=== PATIENT | male | born 1955 | race Two or more races ===

== ENCOUNTER 2020-07-31 22:31 | Inpatient (IN) | payer MEDICARE ==
[~2020-07-31] VITALS: Ht 170.2 cm; Wt 117.9 kg
--- NOTE | 2020-07-31 22:31 | NUR ---
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 PT PLACED IN BED 1 ON AQUATICS SPECIALIST AND PULSE OX. SR ON MONITOR W PVCS. IV RH 20G PLACED, BLOOD DRAWN, SENT TO LAB. AWAITING OTHER ORDERS.
[2020-07-31 22:53] LABS: BASOPHILS # (AUTO) 0.1 /CMM (0.0-0.2); BASOPHILS % (AUTO) 0.7 % (0.0-2.0); EOSINOPHILS % (AUTO) 5.8 % (0.0-6.0); HEMATOCRIT 47 % (39-51); HEMOGLOBIN 15.6 g/dL (13.5-17.5); LYMPHOCYTES # (AUTO) 2.4 /CMM (0.8-4.8); LYMPHOCYTES % (AUTO) 29.5 % (20.0-44.0); MEAN CORPUSCULAR HGB CONC 34 g/dl (31.0-36.0); MEAN CORPUSCULAR VOLUME 98 fL (80-96); MONOCYTES # (AUTO) 0.8 /CMM (0.1-1.30); MONOCYTES % (AUTO) 9.4 % (2.0-12.0); NEUTROPHILS # (AUTO) 4.5 /CMM (1.8-8.9); NEUTROPHILS % (AUTO) 54.6 % (43.0-81.0); PLATELET COUNT (AUTO) 236 /CMM (150-450); RED BLOOD CELL COUNT(AUTO) 4.76 MIL/uL (4.5-6.0); WHITE BLOOD COUNT (AUTO) 8.2 K/uL (4.3-11.0)
[2020-07-31 23:02] LABS: CALCIUM, SERUM 8.4 mg/dL (8.5-10.1); CARBON DIOXIDE 24 mmol/L (21-32); CHLORIDE 108 mmol/L (98-107); GLUCOSE 127 mg/dL (74-106); POTASSIUM 3.8 mmol/L (3.5-5.1); SODIUM SERUM 142 mmol/L (136-145); UREA NITROGEN, BLOOD 14 mg/dL (7-18)
[2020-07-31 23:18] LABS: ALANINE AMINOTRANSFERASE 25 U/L (12-78); ALBUMIN 3.2 g/dL (3.4-5.0); ALKALINE PHOSPHATASE 65 U/L (46-116); ASPARTATE AMINOTRANSFERASE 10 U/L (15-37); B-TYPE NATRIURETIC PEPTIDE 366 PG/ML (0-125); BILIRUBIN,DIRECT 0.1 mg/dL (0.0-0.2); BILIRUBIN,TOTAL 0.5 mg/dL (0.2-1.0); TOTAL PROTEIN, SERUM 6.9 g/dL (6.4-8.2)
[2020-08-01] VITALS (7 sets, daily range): BP systolic 123–160; BP diastolic 72–119
--- NOTE | 2020-08-01 00:19 | NUR ---
REMAINS IN BED, ON MONITOR, AND PULSE OX. VSS. DENIES CP. AWARE OF ADMISSION.
[2020-08-01] MEDS ORDERED: AZITHROMYCIN 500 MG VIAL ONE (00:29)
[2020-08-01] MEDS ORDERED: ACETAMINOPHEN 325 MG TABLET PO PRN (00:30)
[2020-08-01] MEDS ORDERED: AZITHROMYCIN 500 MG in IV D5W 250 ML IV ONE (00:30)
[2020-08-01] MEDS ORDERED: Z GUARD REMEDY 2 OZ OINT TP PRN (00:30)
[2020-08-01] MEDS ORDERED: MAG HYDROX/AL HYDROX/SIMETH 30 ML UDC PO PRN (00:30)
[2020-08-01] MEDS ORDERED: AZITHROMYCIN 500 MG in IV D5W 250 ML IV SCH ×2 (00:30→07:30)
[2020-08-01] MEDS ORDERED: MAGNESIUM HYDROXIDE 30 ML UDC PO PRN (00:30)
[2020-08-01] MEDS ORDERED: CEFTRIAXONE 1GM BAG (ER ONLY) 50 ML IV ONE (00:30)
[2020-08-01] MEDS ORDERED: ONDANSETRON HCL/PF 4 MG/2 ML VIAL IVP PRN (00:30)
--- NOTE | 2020-08-01 00:41 | NUR ---
BED ASSIGNMENT 313-2
--- NOTE | 2020-08-01 00:53 | NUR ---
REPORT GIVEN TO Gisella MOORE FOR FRANCHESKA
--- NOTE | 2020-08-01 01:10 | NUR ---
PT TRANSFERED PER ACLS PROTOCOL
--- NOTE | 2020-08-01 02:30 | NUR ---
PT RECEIVED FROM ER VIA STRETCHER. AOX4, CASANOVA, AMBULATES TO THE BATHROOM WITH A STEADY GAIT. DENIES SOB, DYSPNEA OR PAIN. SKIN INTACT. ORIENTATED TO ROOM AND EQUIPMENT. ENCOURAGED TO CALL FOR ASSIST.
--- NOTE | 2020-08-01 07:25 | NUR ---
MANAGER GROUP NOTES PATIENT IN BED ALERT ORIENTED X 4. NO ACUTE DISTRESS NOTED. BREATHING UNLABORED. DENIED CHEST PAIN. IV ACCESS PATENT AND INTACT, NO REDNESS, NO SWELLING NOTED. SAFETY MEASURES IN PLACE. CALL LIGHT WITHIN REACH. WILL CONTINUE TO MONITOR ACCORDINGLY.
[2020-08-01] MEDS ORDERED: ATOR10TA PO (08:34)
[2020-08-01] MEDS ORDERED: TICA90TA PO (08:34)
[2020-08-01] MEDS ORDERED: ASPI-1169 PO (08:34)
[2020-08-01] MEDS ORDERED: [UNRECOGNIZED DRUG - REMARK] PO (08:34)
[2020-08-01] MEDS ORDERED: IV NS 0.9% 500 ML IV PRN (09:00)
[2020-08-01] MEDS ORDERED: ENOXAPARIN SODIUM 40 MG/0.4 ML DISP.SYRIN SQ SCH (09:00)
[2020-08-01] MEDS ORDERED: NITROGLYCERIN 4.9 GM SPRAY SL PRN (09:00)
--- NOTE | 2020-08-01 09:20 | NUR ---
TAX CONSULTANT NOTES BERTRAND NOT AVAILABLE ON THE FLOOR AT THIS TIME, CALLED PHARMACY SAID THEY WILL BRING MEDICATION.
[2020-08-01] MEDS: ASPIRIN 81 MG TAB.CHEW PO SCH (09:23)
[2020-08-01] MEDS: ATORVASTATIN 10 MG TABLET PO SCH (09:24)
--- NOTE | 2020-08-01 09:27 | NUR ---
THRESHER BROOMCORN NOTES PATIENT TRANSPORTED FOR CTA IN STABLE CONDITION. ALERT ORIENTED X 4
[2020-08-01] MEDS ORDERED: NITROGLYCERIN 0.4 MG/TAB BOTTLE SL ONE (09:30)
[2020-08-01] MEDS ORDERED: IOHEXOL-350 100 ML VIAL IV ONE (09:35)
[2020-08-01] MEDS ORDERED: IV NS 0.9% 250 ML IV ONE (09:36)
[2020-08-01] MEDS ORDERED: METOPROLOL TARTRATE INJ 5 MG/5 ML AMPUL ONE (09:36)
[2020-08-01] MEDS ORDERED: CT SWABBABLE VALVE TRANS SET 1 EA INFUS.SET MC ONE (09:36)
[2020-08-01] MEDS ORDERED: NITROGLYCERIN 0.4 MG/TAB BOTTLE ONE (09:36)
[2020-08-01 09:40] LABS: BASOPHILS % (AUTO) 0.4 % (0.0-2.0); EOSINOPHILS % (AUTO) 4.4 % (0.0-6.0); HEMATOCRIT 46 % (39-51); HEMOGLOBIN 15.1 g/dL (13.5-17.5); LYMPHOCYTES # (AUTO) 1.7 /CMM (0.8-4.8); MEAN CORPUSCULAR HGB CONC 33 g/dl (31.0-36.0); MEAN CORPUSCULAR VOLUME 99 fL (80-96); MONOCYTES # (AUTO) 0.6 /CMM (0.1-1.30); MONOCYTES % (AUTO) 8.6 % (2.0-12.0); NEUTROPHILS # (AUTO) 4.5 /CMM (1.8-8.9); NEUTROPHILS % (AUTO) 62.6 % (43.0-81.0); PLATELET COUNT (AUTO) 221 /CMM (150-450); RED BLOOD CELL COUNT(AUTO) 4.59 MIL/uL (4.5-6.0); WHITE BLOOD COUNT (AUTO) 7.2 K/uL (4.3-11.0)
[2020-08-01] MEDS: METOPROLOL TARTRATE INJ 5 MG/5 ML AMPUL IVP PRN ×3 (09:46→09:56)
[2020-08-01 10:00] LABS: ALBUMIN 3.1 g/dL (3.4-5.0); BILIRUBIN,TOTAL 0.6 mg/dL (0.2-1.0); CALCIUM, SERUM 8.6 mg/dL (8.5-10.1); MAGNESIUM 2.1 mg/dL (1.8-2.4); PHOSPHORUS 2.6 mg/dL (2.5-4.9); POTASSIUM 3.8 mmol/L (3.5-5.1); TOTAL PROTEIN, SERUM 6.8 g/dL (6.4-8.2)
--- NOTE | 2020-08-01 10:18 | NUR ---
for CTA heart, AAOx4 denies CP or SOB, VSS; given SR with PVCs on monitor,Metoprolol 5 mg IVP,x3 total doses given NTG0.4 Mg SL given; pt tolerated procedure; off to the floor via wheelchair, report given to Janey MOORE
--- NOTE | 2020-08-01 10:25 | NUR ---
ENTRY LEVEL FINANCIAL ANALYST NOTES PATIENT CAME BACK FROM CTA IN STABLE CONDITION, REPORT GIVEN BY JUANCARLOS MOORE.
[2020-08-01] MEDS: TICAGRELOR 90 MG TABLET PO SCH ×2 (10:38→17:41)
--- NOTE | 2020-08-01 11:25 | NUR ---
EMAIL MARKETING MANAGER NOTES PATIENT REMAIN STABLE , VITAL SIGNS WNL. WILL CONTINUE TP MONITOR
[2020-08-01] MEDS: METOPROLOL TARTRATE 50 MG TABLET PO SCH ×2 (12:52→18:28)
--- NOTE | 2020-08-01 14:25 | NUR ---
STATE FIRE MARSHAL NOTES PATIENT SEEN BY DR ADAMSON EXPLAINED CTA RESULTS
--- NOTE | 2020-08-01 19:00 | NUR ---
SAP BPC DEVELOPER NOTES PATIENT IN BED ALERT ORIENTED X 4. NO ACUTE DISTRESS NOTED. BREATHING UNLABORED. DENIED CHEST PAIN. IV ACCESS PATENT AND INTACT, NO REDNESS, NO SWELLING NOTED. NEEDS ATTENDED AND ANTICIPATED. SAFETY MEASURES IN PLACE. CALL LIGHT WITHIN REACH. WILL ENDORSE TO NIGHT NURSE FOR CONTINUITY OF CARE.
--- NOTE | 2020-08-01 19:31 | NUR ---
RN PAIN MANAGEMENT OPENING NOTES PATIENT A/OX4; ABLE TO MAKE NEEDS KNOWN. TOLERATING ROOM AIR WELL. ON EXTERNAL CARDIAC MONITORING; READS SR WITH PVC. DENIES PAIN OR C/O DISTRESS. IV #18G TO RAC; PATENT AND INTACT. IV #20G TO RIGHT HAND S/L; PATENT AND INTACT. SAFETY MEASURES IN PLACE; BED IN LOWEST LOCKED POSITION, SIDE RAILS UPX2, CALL LIGHT WITHIN EASY REACH. WILL CONTINUE PLAN OF CARE.
[2020-08-01] MEDS: CEFTRIAXONE 1 G in IV D5W 50 ML IV SCH (20:22)
[2020-08-01] MEDS: diphenhydrAMINE HCL 25 MG CAPSULE PO PRN (22:07)
[2020-08-01] MEDS: ZITHROMAX 500 MG/250 ML D5W IV SCH ×2 (22:07)
--- NOTE | 2020-08-01 22:07 | NUR ---
DIRECTOR TRANSLATION NOTES - SLEEP PATIENT C/O NOT SLEEPING IN 2 DAYS, AND REQUESTING FOR MEDICATION TO HELP GO TO SLEEP. AGATHA HALEY NP ORDERED BENADRYL 25MG PO HS PRN DX: INSOMNIA. ORDERED AND ADMINISTERED. WILL CONTINUE TO MONITOR SLEEP.
--- NOTE | 2020-08-01 22:10 | NUR ---
GARBAGE TRUCK DRIVER NOTES - CONSENT FOR LEFT CARDIAC CATHETERIZATION DR. VERDUZCO CALLED AND NOTIFIED RN THAT PATIENT IS HAVING LEFT CARDIAC CATHETERIZATION ON 08/02/2020 AT 0700. RN INFORMED PATIENT AND PATIENT SIGNED CONSENT FORM. RING REMOVED AND IS AT BEDSIDE. CHARGE NURSE AWARE AND AWAITING FOR ANESTHESIA DOCUMENTS FROM THE CHARGE NURSE.
[2020-08-02] VITALS (30 sets, daily range): BP systolic 103–158; BP diastolic 20–96
[2020-08-02] MEDS ORDERED: IV NS 0.9% 1,000 ML ONE (05:56)
[2020-08-02] MEDS ORDERED: IV SET PRIMARY PUMP SET 1 EA INFUS.SET MC ONE ×2 (05:56→07:54)
[2020-08-02] MEDS ORDERED: LIDOCAINE HCL/MPF 1% 30 ML VIAL IJ ONE (05:57)
[2020-08-02] MEDS ORDERED: IODIXANOL 150 ML IV ONE ×3 (05:57→07:48)
[2020-08-02] MEDS: METOPROLOL TARTRATE 50 MG TABLET PO SCH ×5 (06:00→23:01)
--- NOTE | 2020-08-02 06:10 | NUR ---
OUTPATIENT SCHEDULER CLOSING NOTES PATIENT A/OX4; ABLE TO MAKE NEEDS KNOWN. TOLERATING ROOM AIR WELL. ON EXTERNAL CARDIAC MONITORING; READS SR WITH PVC. DENIES PAIN OR C/O DISTRESS. IV #18G TO RAC; PATENT AND INTACT. IV #20G TO RIGHT HAND S/L; PATENT AND INTACT. IV #18G TO L HAND; PATENT AND INTACT. PATIENT TRANSPORTED TO FRAUD MANAGER FOR LEFT CARDIAC CATHETERIZATION. ENDORSE PLAN OF CARE TO ONCOMING NURSE.
[2020-08-02] MEDS ORDERED: NITROGLYCERIN ICAR 1,000 MCG/10 ML VIAL ICAR ONE (06:44)
[2020-08-02] MEDS ORDERED: FENTANYL PF 100MCG/2ML AMPUL ONE ×2 (07:10→08:34)
[2020-08-02] MEDS ORDERED: MIDAZOLAM HCL 2 MG/2ML VIAL ONE (07:10)
[2020-08-02] MEDS ORDERED: IODIXANOL 320MG/ML 50 ML IV ONE (07:24)
[2020-08-02] MEDS ORDERED: HEPARIN SODIUM, PORCINE 1,000 UNIT/ML VIAL ONE ×2 (07:24→07:49)
[2020-08-02] MEDS ORDERED: HEPARIN SODIUM, PORCINE 5000 UNITS/1 ML VIAL ONE (07:30)
--- NOTE | 2020-08-02 07:35 | NUR ---
MS/RN OPENING NOTE RECEIVED PATIENT FROM DREDGE MECHANIC NURSE PATIENT IN BED ASLEEP, EASILY WOKEN UP. A/O X4. NO ACUTE DISTRESS NOTED AT THIS TIME. PATIENT ON ROOM AIR, TOLERATING WELL. NO SOB NOTED, BREATHING EVEN, NON LABORED. SAFETY MEASURE IN PLACE, BED LOCKED AND IN LOWEST POSITION, CALL LIGHT WITHIN REACH. WILL CONTINUE TO MONITOR AND ENSURE SAFETY.
--- NOTE | 2020-08-02 07:38 | NUR ---
MS/RN NOTE PATIENT IS CURRENTLY IN ASSISTANT COUNSEL.
[2020-08-02] MEDS ORDERED: EPINEPHRINE (1:10,000) SYRINGE 1 MG/10 ML DISP.SYRIN ONE (07:43)
[2020-08-02] MEDS ORDERED: DOPamine 400MG/D5W 250ML RTU 250 ML ONE (07:43)
[2020-08-02] MEDS ORDERED: ONDANSETRON HCL/PF 4 MG/2 ML VIAL ONE (07:47)
[2020-08-02] MEDS ORDERED: NOREPINEPHRINE 4 MG/4 ML AMPUL IV ONE (07:53)
[2020-08-02] MEDS ORDERED: IV NS 0.9% 250 ML IV ONE (07:53)
[2020-08-02] MEDS ORDERED: IV NS 0.9% 500 ML IV ONE ×2 (08:02)
[2020-08-02] MEDS ORDERED: TICAGRELOR 90 MG TABLET PO ONE (08:44)
[2020-08-02] MEDS ORDERED: ASPIRIN 325 MG TABLET ONE (08:44)
[2020-08-02] MEDS: ASPIRIN 81 MG TAB.CHEW PO SCH (09:00)
[2020-08-02] MEDS: TICAGRELOR 90 MG TABLET PO SCH ×2 (09:00→20:00)
--- NOTE | 2020-08-02 09:10 | NUR ---
POST LEFT HEART CATH DONE PT IS AAOX4, NOT IN RESPIRATORY DISTRESS, V/S STABLE, KEPT RESTED AND COMFORTABLE. LEVOPHED DRIP STARTED TITRATE TO EFFECT. REPORT GIVEN TO TERESA GONZALEZ OF ICU FOR FRANCHESKA.
[2020-08-02] MEDS: ATORVASTATIN 10 MG TABLET PO SCH (10:23)
[2020-08-02] MEDS: HYDROCODONE/APAP 5/325MG TABLET PO PRN ×2 (10:24→18:03)
--- NOTE | 2020-08-02 10:41 | NUR ---
MS/RN NOTE CHARGE NURSE WAS TRANSFERRED TO ICU AFTER BEING TAKEN TO AIR POLLUTION ENGINEER. TRANSFER REPORT GIVEN TO ICU NURSE. BELONGINGS TRANSFERED TO ICU, DUCK BILL OPERATOR TOOK BELONGINGS TO PATIENT.
--- NOTE | 2020-08-02 11:00 | NUR ---
Received pt from lab assistant with RN and monitor in stable condition. Denies CP and SOB. Received pt with right femoral A line sheath, Left femoral A line sheath with pressure bag, Left fem venous sheath, and Right radial TR band inflated. Right radial site with ecchymosis. No hematoma noted. Small amount of dry blood noted to right radial site. Left and right femoral sheath sites intact w/ no bleeding or hematoma noted. Left radial sheath transduced to monitor. Right radial sheath left in place without transducer (per editor magazine). Will monitor frequently for bleeding and hematoma formation.
[2020-08-02] MEDS ORDERED: IV NS 0.9% 1,000 ML IV ONE (12:00)
[2020-08-02] MEDS ORDERED: NOREPINEPHRINE 8 MG in IV NS 0.9% 242 ML IV PRN (12:00)
--- NOTE | 2020-08-02 12:30 | NUR ---
TR band deflated to right radial cath site per order. Small dry amount of blood noted. Ecchymosis remains. No hematoma noted. Pt educated on the importance of bedrest without bending BLE. Pt verbalized understanding.
[2020-08-02 12:54] LABS: BASOPHILS % (AUTO) 0.2 % (0.0-2.0); EOSINOPHILS % (AUTO) 0.4 % (0.0-6.0); HEMATOCRIT 45 % (39-51); LYMPHOCYTES # (AUTO) 1.4 /CMM (0.8-4.8); LYMPHOCYTES % (AUTO) 13.7 % (20.0-44.0); MEAN CORPUSCULAR HGB CONC 34 g/dl (31.0-36.0); MEAN CORPUSCULAR VOLUME 97 fL (80-96); MONOCYTES # (AUTO) 0.7 /CMM (0.1-1.30); MONOCYTES % (AUTO) 7.4 % (2.0-12.0); NEUTROPHILS # (AUTO) 7.8 /CMM (1.8-8.9); NEUTROPHILS % (AUTO) 78.3 % (43.0-81.0); PLATELET COUNT (AUTO) 222 /CMM (150-450); RED BLOOD CELL COUNT(AUTO) 4.58 MIL/uL (4.5-6.0)
[2020-08-02 13:33] LABS: BILIRUBIN,TOTAL 0.8 mg/dL (0.2-1.0); CALCIUM, SERUM 8.5 mg/dL (8.5-10.1); MAGNESIUM 2.1 mg/dL (1.8-2.4); PHOSPHORUS 2.9 mg/dL (2.5-4.9); POTASSIUM 3.8 mmol/L (3.5-5.1); TOTAL PROTEIN, SERUM 6.5 g/dL (6.4-8.2)
[2020-08-02] MEDS: HEPARIN INFUSION/D5W 500 ML IV PRN (13:46)
--- NOTE | 2020-08-02 18:10 | NUR ---
Call placed to Dr. Patricia (cardiology) to clarify order for Brilinta. Pt on Heparin drip as per order. Need clarification whether or not to continue Brilinta in addition to Heparin gtt. Left message on voicemail. Awaiting call back for orders.
--- NOTE | 2020-08-02 19:00 | NUR ---
RECEIVED PATIENT AWAKE,ALERT,CONVERSES, COHERENT AND APPROPRIATE,NOT IN ANY DISTRESS,DENIES ANY CHEST PAIN/DISCOMFORT. ON HEPARIN DRIP @ 1000 UNITS /HR.(BY ACS PROTOCOL). NO S/S OF ANY BLEEDING .WILL CLOSELY MONITOR FOR BLEEDING. ARTERIAL SHEATH VIA LEFT FEMORAL AREA(CONNECTED AN ARTERIAL LINE ) ,GOOD WAVEFORM,GOOD BLOOD RETURN. RIGHT FEMORAL WITH CATHETER,INTACT,NO S/S OF BLEEDING, DFRESSING DRY AND INTACT. PATIENT NPO POST MIDNIGHT ,GOING BACK TO CATH.LAB IN AM.
--- NOTE | 2020-08-02 19:00 | NUR ---
Mary RIBEIRO HEOLD BY LUI MOORE, PATIENT STARTED ON HEPARIN DRIP
--- NOTE | 2020-08-02 19:20 | NUR ---
Report given to oncoming RN. Pt in stable condition without bleeding or hematoma noted to right radial, right femoral and left femoral sheath sites.
--- NOTE | 2020-08-02 20:30 | NUR ---
PTT=29.8. as per ACS Protocol will give 6000 units Heparin IV bolus then increase drip by 300 units (1300 units/hr).
[2020-08-02] MEDS ORDERED: HEPARIN SODIUM, PORCINE 5000 UNITS/1 ML VIAL IV ONE (22:00)
--- NOTE | 2020-08-02 22:00 | NUR ---
REMAINS STABLE ,NO CHEST PAIN,NO S/S OF ANY BLEEDING.
[2020-08-02] MEDS: CEFTRIAXONE 1 G in IV D5W 50 ML IV SCH (22:20)
[2020-08-02] MEDS: diphenhydrAMINE HCL 25 MG CAPSULE PO PRN (23:00)
[2020-08-02] MEDS: ZITHROMAX 500 MG/250 ML D5W IV SCH ×2 (23:01)
[2020-08-03] VITALS (48 sets, daily range): BP systolic 93–176; BP diastolic 53–134
--- NOTE | 2020-08-03 | NUR ---
INSTRUCTED PATIENT TO BE NPO STARTING NOW.FOR CARDIAC CATH IN AM.PATIENT IS AWARE THAT HE'S GOING BACK TO THE CATH. LAB IN AM
--- NOTE | 2020-08-03 02:00 | NUR ---
SLEEPS INTERMITTENTLY,REMAINS STABLE.NO S/S OF ANY BLEEDING. ARTERIAL SHEATH SITE NO BLEEDING.
--- NOTE | 2020-08-03 04:00 | NUR ---
PTT=54.1 . THERAPEUTIC PER ACS PROTOCOL NO CHANGE IN RATE.WILL CALL CATH.LAB IN AM TO CHECK WHAT TIME SHOULD THE HEPARIN DRIP BE HELD PRIOR CARDIAC CATH. PROCEDURE.
[2020-08-03 04:17] LABS: BASOPHILS # (AUTO) 0.1 /CMM (0.0-0.2); BASOPHILS % (AUTO) 1.3 % (0.0-2.0); EOSINOPHILS % (AUTO) 1.9 % (0.0-6.0); HEMATOCRIT 42 % (39-51); HEMOGLOBIN 14.2 g/dL (13.5-17.5); LYMPHOCYTES # (AUTO) 1.9 /CMM (0.8-4.8); LYMPHOCYTES % (AUTO) 21.9 % (20.0-44.0); MEAN CORPUSCULAR HGB CONC 34 g/dl (31.0-36.0); MEAN CORPUSCULAR VOLUME 98 fL (80-96); MONOCYTES # (AUTO) 0.8 /CMM (0.1-1.30); MONOCYTES % (AUTO) 8.8 % (2.0-12.0); NEUTROPHILS # (AUTO) 5.7 /CMM (1.8-8.9); NEUTROPHILS % (AUTO) 66.1 % (43.0-81.0); PLATELET COUNT (AUTO) 206 /CMM (150-450); RED BLOOD CELL COUNT(AUTO) 4.26 MIL/uL (4.5-6.0); WHITE BLOOD COUNT (AUTO) 8.6 K/uL (4.3-11.0)
[2020-08-03 05:59] LABS: CALCIUM, SERUM 8.3 mg/dL (8.5-10.1); CREATININE 0.9 mg/dL (0.6-1.3); POTASSIUM 3.8 mmol/L (3.5-5.1)
[2020-08-03] MEDS: METOPROLOL TARTRATE 50 MG TABLET PO SCH ×4 (06:17→19:24)
--- NOTE | 2020-08-03 06:30 | NUR ---
CALLED CATH. LAB. SPOKE TO THE DIRECTOR OF GLOBAL MARKETING,INQUIRED TO WHAT TIME SHOULD THE HEPARIN DRIP BE HELD PRIOR TO THE SCHEDULED PROEDURE WHICH IS SCHEDULED @ 0800, WAS INSTRUCTED BY HIM TO JUST KEEP THE HEPARIN DRIP INFUSING FOR NOW (STAES USUALLY 1 HOUR BEFORE THE PROCEDURE).
[2020-08-03] MEDS ORDERED: IV SET PRIMARY PUMP SET 1 EA INFUS.SET MC ONE (06:46)
[2020-08-03] MEDS ORDERED: IV NS 0.9% 1,000 ML ONE (06:46)
[2020-08-03] MEDS ORDERED: IODIXANOL 300 ML IV ONE (06:47)
[2020-08-03] MEDS ORDERED: LIDOCAINE HCL/MPF 1% 30 ML VIAL IJ ONE (06:48)
--- NOTE | 2020-08-03 07:21 | NUR ---
RN OPENING NOTES RECEIVED PATIENT AWAKE, ALERT AND ORIENTED, SR W/ PVC'S, PERIPHERAL IV'S X3 INTACT, HEPARIN DRIP RUNNING AT 1300 UNITS ON LEFT HAND, RIGHT FEMORAL SHEATH INTACT AND CLAMPED, NO BLEEDING NO SWELLING NO HEMATOMA, LEFT FEMORAL SHEATH INTACT, NO BLEEDING NO SWELLING NO HEMATOMA, WITH A LINE ATTACHED. PULSES PALPABLE ON DORSALIS PEDIS OF BOTH FEET, RIGHT WRIST BRUISING NOTED, VOIDED IN THE URINAL 350ML, PREPARED PATIENT FOR HEART CATH TODAY, CALL LIGHT WITHIN REACH, BED LOCKED AND KEPT IN LOWEST POSITION, WILL HAND OVER TO CATH NURSE FOR CONTINUITY OF CARE
[2020-08-03] MEDS ORDERED: NOREPINEPHRINE 4 MG/4 ML AMPUL IV ONE (07:32)
[2020-08-03] MEDS ORDERED: IV NS 0.9% 250 ML IV ONE (07:33)
[2020-08-03] MEDS ORDERED: FENTANYL PF 100MCG/2ML AMPUL ONE ×2 (07:34→09:18)
[2020-08-03] MEDS ORDERED: MIDAZOLAM HCL 2 MG/2ML VIAL ONE (07:34)
[2020-08-03] MEDS ORDERED: DOPamine 400MG/D5W 250ML RTU 0 ML ONE (07:35)
--- NOTE | 2020-08-03 07:35 | NUR ---
RN NOTES PATIENT LEFT THE UNIT AT 0730. HEPARIN CONTINUE TO RUN PER ADZING AND BORING MACHINE FEEDER NURSE. BOTH SHEATHS ON EITHER GROIN INTACT. PERIPHERAL IVL'S INTACT. WILL AWAIT RETURN TO UNIT. Addendum: 08/03/20 at 0813 by HANNAH LEWIS RN HEAPRIN WAS CONTINUED PER ORDER PRIOR TO LEAVING THE UNIT.
[2020-08-03] MEDS ORDERED: EPINEPHRINE (1:10,000) SYRINGE 1 MG/10 ML DISP.SYRIN ONE (07:36)
[2020-08-03] MEDS ORDERED: ATROPINE SULFATE 1 MG/10 ML DISP.SYRIN ONE (07:36)
[2020-08-03] MEDS ORDERED: IODIXANOL 320MG/ML 50 ML IV ONE (07:47)
[2020-08-03] MEDS ORDERED: IV NS 0.9% 500 ML IV ONE (07:55)
[2020-08-03] MEDS ORDERED: HYDROMORPHONE 1 MG/1 ML DISP.SYRIN ONE (08:18)
[2020-08-03] MEDS ORDERED: HEPARIN SODIUM, PORCINE 5000 UNITS/1 ML VIAL ONE (08:30)
[2020-08-03] MEDS ORDERED: HEPARIN SODIUM, PORCINE 1,000 UNIT/ML VIAL ONE (08:54)
[2020-08-03] MEDS ORDERED: IODIXANOL 320MG/ML 100 ML IV ONE (09:09)
--- NOTE | 2020-08-03 10:25 | NUR ---
RN NOTES RECEIVED PT FROM NEWS REPORTER A/O X4, ON RA, SATURATING 98%, NO DISTRESS NOTED, SR 74 ON TELEMETRY, PRESSURE DRESSING AT THE RIGHT GROIN DRY AND INTACT, NO BLEEDING OR SWELLING NOTED, COLOR WARMTH MOVEMENT AND SENSATION PRESENT ON THE RIGHT FOOT, PULSE PALPABLE. LEFT GROIN DRESSING DRY AND INTACT, NO BLEEDING BUT WITH SOME SWELLING NOTED. NO BRUISING NO HEMATOMA. IVF ATTACHED TKO. COLOR WARMTH MOVEMENT AND SENSATION PRESENT ON LEFT FOOT, PULSE PALPABLE. NO COMPLAINTS OF PAIN IN CHEST OR ELSEWHERE. KEPT ON BEDREST. WILL CONTINUE TO MONITOR. Addendum: 08/03/20 at 1151 by HANNAH LEWIS RN RIGHT GROIN SHEATH WAS REMOVED AT NEWS REPORTER WHILE LEFT GROIN SHEATH REMAINS IN PLACE.
[2020-08-03] MEDS: ATORVASTATIN 10 MG TABLET PO SCH (10:51)
[2020-08-03] MEDS: ASPIRIN 81 MG TAB.CHEW PO SCH (10:51)
[2020-08-03] MEDS: TICAGRELOR 90 MG TABLET PO SCH ×2 (10:52→17:06)
[2020-08-03] MEDS ORDERED: IV NS 0.9% 1,000 ML IV SCH ×2 (12:00→17:00)
[2020-08-03] MEDS: HYDROCODONE/APAP 5/325MG TABLET PO PRN ×2 (12:44→17:05)
--- NOTE | 2020-08-03 14:47 | NUR ---
RN NOTES LEFT GROIN DRESSING DRY AND INTACT. NO BLEEDING NO HEMATOMA. SLIGHT SWELLING UNCHANGED FROM TIME OF ARRIVAL. LEFT FEMORAL SHEATH STILL IN PLACE. GOOD COLOR, MOVEMENT, WARMTH AND SENSATION ON LEFT FOOT. PEDAL PULSES DP AND PT BOTH PALPABLE. NO NUMBNESS NO TINGLING NOTED. RIGHT GROIN DRESSING DRY AND INTACT. NO BLEEDING NO SWELLING. GOOD COLOR, MOVEMENT, WARMTH AND SENSATION ON RIGHT FOOT. PEDAL PULSES DP AND PT BOTH PALPABLE. NO NUMBNESS NO TINGLING NOTED.
[2020-08-03] MEDS ORDERED: ATROPINE SULFATE 1 MG/10 ML DISP.SYRIN IV ONE (16:45)
--- NOTE | 2020-08-03 17:30 | NUR ---
RN NOTES ATTEMPTED TO GIVE REPORT TO [facility] BUT THEY WOULD LIKE TO KNOW FIRST THE PICKUP TIME AND WANTS THE REPORT 30MINUTES BEFORE PICKUP TIME.
--- NOTE | 2020-08-03 18:00 | NUR ---
RN NOTES HELD LOPRESSOR FOR RISK OF VAGAL
--- NOTE | 2020-08-03 18:50 | NUR ---
RN NOTES HEMOSTASIS ACHIEVED, ON LEFT GROINS, SHEATH REMOVED BY KITTY MOORE , DIRECTOR CAMP NURSE. LEFT DP AND PT PULSED PRESENT , NO SIGN OF COMPLICATION NOTED, VSS STABLE, WILL ENDOSE TO WIND TURBINE ENGINEER NURSE FOR CONTINUITY OF CARE .
--- NOTE | 2020-08-03 19:00 | NUR ---
RN NOTES PT HAS TO BE ON HEPARIN GTT DURINING TRANSFER TO [facility] WITH AMBULANCE PER DR VERDUZCO ORDER .
--- NOTE | 2020-08-03 19:00 | NUR ---
HEALTHCARE ASSOCIATE. INITIAL ASSESSMENT. RECEIVED THE PT REST ON THE BED. AWAKE, ALERT, FOLLOW COMMANDS. NURSE SCHOOL SHOWING NSR WITH FREQUENT PVCS. AFEBRILE. IV RT AND LT HAND 20G. HEPARIN 1300U/H. LT FEMORAL DRESSING INTACT. NO BLEEDING OR HEMATOMA NOTED. SHAHBAZ LOWER EXTREMITY PULSE PALPABLE. NO CYANOSIS NOTED. FEET TOUCH AND COOL
[2020-08-03] MEDS ORDERED: ATOR10TA PO (19:09)
[2020-08-03] MEDS ORDERED: [UNRECOGNIZED DRUG - CODE] IV (19:09)
[2020-08-03] MEDS: HEPARIN INFUSION/D5W 500 ML IV PRN (19:30)
--- NOTE | 2020-08-03 19:35 | NUR ---
RN NOTES DR VERDUZCO NOTIFED REGARDING MORE FREQUENT PVC' S BIGEMINY AND TRIGEMINY. NO NEW ORDER GIVEN , PT STABLE AT THIS TIME, NO COMPLICATION NOTED.
[2020-08-03] MEDS: CEFTRIAXONE 1 G in IV D5W 50 ML IV SCH (20:41)
--- NOTE | 2020-08-03 20:50 | NUR ---
MIXING PLACE SUPERVISOR. REPORT GIVEN TO JULIO MOORE. IN [facility]
--- NOTE | 2020-08-03 21:25 | NUR ---
DEPARTMENT OF NATURAL RESOURCES OFFICER. REPORT GIVEN TO [facility]. TRANSFER THE PT TO [facility] AT 2124. AUGUSTINE MOORE WENT WITH PT. VITALS STABLE
== END 2020-08-03 21:23 | disposition short-term general hospital (02) | DRG 246 ==
LOC: ER 22:33 → TELE 08-01 00:43 → ICU 08-02 09:30
PROVIDERS: ADMIT Internal Medicine; ATTEND Internal Medicine
PROC: 027034Z Dilation of Coronary Artery, One Artery with Drug-eluting Intraluminal Device, Percutaneous Approach (ICD-10-PCS; principal; 2020-08-02)
PROC: 4A023N7 Measurement of Cardiac Sampling and Pressure, Left Heart, Percutaneous Approach (ICD-10-PCS; 2020-08-02)
PROC: B211YZZ Fluoroscopy of Multiple Coronary Arteries using Other Contrast (ICD-10-PCS; 2020-08-02)
DX: I25.110 Atherosclerotic heart disease of native coronary artery with unstable angina pectoris (principal); N18.6 End stage renal disease; I13.2 Hypertensive heart and chronic kidney disease with heart failure and with stage 5 chronic kidney disease, or end stage renal disease; E44.1 Mild protein-calorie malnutrition; Z95.5 Presence of coronary angioplasty implant and graft; I25.2 Old myocardial infarction; I25.10 Atherosclerotic heart disease of native coronary artery without angina pectoris; Z20.822 Contact with and (suspected) exposure to COVID-19; Z99.2 Dependence on renal dialysis; I50.9 Heart failure, unspecified; I49.3 Ventricular premature depolarization; I42.9 Cardiomyopathy, unspecified; Z87.891 Personal history of nicotine dependence; E66.9 Obesity, unspecified
CPT/HCPCS: 36415; 71045-TC; 75574; 75625; 80048-TC; 80053-TC; 80061-TC; 80076-TC; 83735-TC; 83880; 84100-TC; 84484-TC; 85025-TC; 85730-TC; 87040-TC; 87081-TC; 92980; 93307-TC; A6403; C1725; C1753; C1769; C1887; C1894; C9803; G0378; G0500; J0171; J0456; J0461; J0696; J1170; J1265; J1644; J2250; J2405; J3010; J3490; J7030; J7040; J7050; J7060; Q0163; Q9967